=== PATIENT | female | born 1945 | race Caucasian/White ===

== ENCOUNTER → 2017-01-25 | Outpatient (CLI) | payer MEDICARE, OTHER ==
--- NOTE | 2017-01-25 12:55 | US ---
EXAMINATION TYPE: US thyroid st tissue head/neck DATE OF EXAM: 01/25/2017 11:00 AM COMPARISON: thyroid fna January 21, 2015. CLINICAL HISTORY: Thyroid Nodule E04.1. Prior FNA on left nodule GLAND SIZE: Right Lobe: 4.5 x 1.3 x 1.5 cm Overall Parenchyma: heterogenous Left Lobe: 4.8 x 2.3 x 1.5 cm Overall Parenchyma: heterogeneous Isthmus Thickness: 0.5 cm NODULES RIGHT: # of nodules measured on right: 2 of multiple 1. 1.2 X 1.0 x 0.9 cm isoechoic solid nodule at the mid pole with well-defined margins. This nodul e is wider than tall and shows minimal intranodular vascularity. Prior size: no prior 2. 0.7 X 0.8 x 0.6 cm hypoechoic mixed nodule at the lower pole with well-defined margins. This nod ule is wider than tall and shows intranodular vascularity. LEFT: # of nodules measured on left: 2 largest of multiple 1. 2.0 X 1.8 x 1.5 cm isoechoic solid nodule at the lower pole with well-defined margins. This nod ule is wider than tall and shows intranodular vascularity. Prior size: seen on Thyroid FNA 2. 1.1 X 1.2 x 0.8 cm hypoechoic solid nodule at the mid pole with well-defined margins. This nodule is wider than tall and shows no intranodular vascularity. ISTHMUS: # of nodules measured in the isthmus: 0 1 Bilateral neck scanned, no evidence of lymphadenopathy. Thyroid gland remains normal in size and heterogeneous in appearance. The dominant 1.2 cm solid nodul e right thyroid lobe is stable in size and appearance from prior. Dominant solid left thyroid nodule is perhaps slightly larger in size versus prior exam but has been aspirated in past. IMPRESSION: Thyroid gland is normal in size with scattered solid nodules redemonstrated, largest bilaterally have been sampled in 2014.
== END | disposition home or self-care (01) ==
LOC: RADUSWWP 10:36
PROVIDERS: ATTEND Surgery
DX: E04.2 Nontoxic multinodular goiter (principal)
CPT/HCPCS: 76536

== ENCOUNTER 2022-01-22 11:15 | Day surgery (SDC) | payer MEDICARE, OTHER ==
[2022-01-12 11:44] VITALS: BMI 30.1
[~2022-01-22 11:15] MED LIST: ACETAMINOPHEN TAB 500 MG TAB PO PRN; HEPARIN SODIUM,PORCINE/PF 5,000 UNIT/0.5 ML SYRINGE SQ PRN
[2022-01-22] MEDS ORDERED: LIDOCAINE 1% (10MG/ML) FOR IV START INTRADERMA PRN (11:32)
[2022-01-22] MEDS ORDERED: MIDAZOLAM 2 MG/2 ML VIAL IV PRN (11:32)
[2022-01-22] MEDS ORDERED: ONDANSETRON 4 MG/2 ML VIAL IVP ONE ×2 (11:32)
[2022-01-22] MEDS ORDERED: HYDROmorphone 0.5 MG/0.5 ML SYRINGE IVP PRN ×3 (11:32→13:55)
[2022-01-22] MEDS ORDERED: DEXAMETHASONE SOD PHOSPHATE 4 MG/ML 1 ML VIAL IV ONE ×2 (11:32)
[2022-01-22] MEDS: LACTATED RINGERS 1,000 ML IV SCH ×2 (12:03→17:17)
[2022-01-22] MEDS ORDERED: PROPOFOL 10 MG/ML 20 ML VIAL IV ONE (12:18)
[2022-01-22] MEDS ORDERED: MIDAZOLAM 2 MG/2 ML VIAL ONE (12:18)
[2022-01-22] MEDS ORDERED: ROCURONIUM 10 MG/ML (5 ML VIAL) IV ONE (12:18)
[2022-01-22] MEDS ORDERED: PHENYLEPHRINE-0.9% NACL SYG 1,000 MCG/10 ML SYRINGE ONE (12:18)
[2022-01-22] MEDS ORDERED: fentaNYL (PF) 50 MCG/ML 2 ML AMP ONE (12:18)
[2022-01-22] MEDS ORDERED: LIDOCAINE 2% INJ 20 MG/ML (2 ML VIAL) ONE (12:18)
[2022-01-22] MEDS ORDERED: BUPIVACAIN-EPI 0.25%-1:200,000 30 ML VIAL SQ ONE (12:23)
[2022-01-22] MEDS ORDERED: LACTATED RINGERS 1,000 ML IV ONE (13:41)
[2022-01-22] MEDS ORDERED: traMADol 50 MG TAB PO PRN (13:55)
[2022-01-22] MEDS ORDERED: NALOXONE 0.4 MG/ML 1 ML VIAL IV PRN (13:55)
[2022-01-22] MEDS ORDERED: ONDANSETRON 4 MG/2 ML VIAL IVP PRN (13:55)
[2022-01-22] MEDS ORDERED: HYDROcodone/APAP 5-325MG 1 EACH TAB PO PRN (13:55)
--- NOTE | 2022-01-22 14:00 | P.OP ---
Date of Procedure: 01/22/22 Procedure(s) Performed: PREOPERATIVE DIAGNOSIS: Chronic cholecystitis POSTOPERATIVE DIAGNOSIS: Same PROCEDURE: Laparoscopic cholecystectomy SURGEON: Sofia EBL: Minimal see anesthesia record ANESTHESIA: Gen. COMPLICATIONS: None OPERATIVE PROCEDURE: The patient was brought and placed on the operating room table in the supine position. The patient was placed under general anesthesia at that time. The abdomen was prepped and draped in the usual sterile fashion. A small vertical infraumbilical incision was made. The fascia was grasped with the Castillo forceps. The fascia was retracted anteriorly. The Veress needle was advanced into the peritoneal cavity. The saline drop test was normal. Insufflation took place up to 15 mmHg. A 5 mm optical trocar was advanced and the peritoneal cavity. 2 additional 5 mm trochars were placed in the right upper quadrant under direct visualization. A 12 mm trocar was advanced into the epigastric incision site. the patient had adhesions between the omentum and the liver in the anterior abdominal wall above the liver margin. These were lysed using electrocautery. The patient's gallbladder was densely adherent to the surrounding pericolonic fat. Careful blunt dissection for the most part is utilized to mobilize the gallbladder further. Once we had the gallbladder fully visualized and we were grasping the gallbladder we noted that there was a large amount of purulent fluid that evacuated from where we grasped the gallbladder. Cultures were taken. Careful dissection at the infundibulum revealed the cystic duct. It was somewhat prominent in diameter. A 2-0 Ethibond stitch was used to ligate on the patient's side of the cystic duct with an additional2 clips on the patient's side as well. The adjacent cystic artery was identified and clipped as well. A small vessel was seen along the gallbladder fossa and clipped as well. The gallbladder was then removed from the liver bed using electrocautery. The gallbladder was then removed from the epigastric trocar site with an Endo Catch bag. The gallbladder fossa was irrigated with saline. There was no evidence of any bleeding or biliary drainage seen. I did place a drain in the gallbladder fossa exiting from the most lateral right upper quadrant 5 mm trocar site. This is sutured in place using a 3-0 silk stitch.The fascia at the 12 millimeter site was closed using a CeliaDick 0 Vicryl stitch. The trochars were then removed. The skin at all 3 sites was closed using a 4-0 Monocryl stitch. Skin glue was utilized on the incision sites. At the end of this procedure the sponge and needle counts were correct. DISPOSITION: Stable to the recovery room
--- NOTE | 2022-01-22 17:09 | P.CONS ---
History of Present Illness - Reason for Consult Consult date: 01/22/22 - Chief Complaint Medical management - History of Present Illness 76-year-old woman with a history of chronic cholecystitis, hyperlipidemia which is diet controlled presented for elective cholecystectomy. Surgery consulted medicine for medical management. Patient does not take any medications at home and has no complaints at this time other than a slight amount of pain and nausea. Her operation went well and the gallbladder was removed laparoscopically with the SHBEA drain remaining in place. The site of the gallbladder did have some. Fluid, which was sent for culture and pending. Patient is currently on tramadol when necessary for pain, Zofran when necessary for nausea, Zosyn for presumed infection. She currently denies fevers, chills, vomiting, chest pain, palpitations, cough, dyspnea, constipation, diarrhea, numbness/weakness of extremities. She is afebrile, 112/71, heart rate 77, 96% on room air. No labs or imaging are available for me to review during this admission. All Systems reviewed and pertinent positives and negatives noted in HPI, all other symptoms are negative Gen: awake, alert HEENT: normocephalic, atraumatic, good hearing acuity, moist mucous membranes Resp: good air exchange, breathing comfortably with no accessory muscle use CVS: good distal perfusion x 4, GI: soft, NTTP, ND : no SPT, no CVAT, donnelly catheter not present MSK: no pitting edema, no clubbing Neuro: non-focal, moving all extremities Psych: cooperative, euthymic mood Labs and imaging as above Assessment/plan: Chronic cholecystitis Hyperlipidemia -Continue current management per surgical team -Agree with Zosyn -Follow up cultures -CBC, BMP, magnesium in the morning -Will not repeat lipid panel at this time, continue outpatient follow-up Thank you for this consult. A member of our team is available 22/04, should any issues or concerns arise, please reach out via perfect serve Past Medical History Past Medical History: Hyperlipidemia, Thyroid Disorder Additional Past Medical History / Comment(s): Thyroid Nodules. 2009 - small nodule on lung identified, follow up found it to be same size and stable, no pr oblems since. History of Any Multi-Drug Resistant Organisms: None Reported Past Surgical History: Orthopedic Surgery, Tubal Ligation Additional Past Surgical History / Comment(s): Right shoulder surgery. Thyroid biopsy. Past Anesthesia/Blood Transfusion Reactions: Motion Sickness, Postoperative Naus ea & Vomiting (PONV) Additional Past Anesthesia/Blood Transfusion Reaction / Comm: "Takes awhile for my body to get rid of it". Past Psychological History: No Psychological Hx Reported Smoking Status: Never smoker Past Alcohol Use History: Rare Past Drug Use History: None Reported - Past Family History Father Family Medical History: Cancer Mother Family Medical History: Fibromyalgia, Thyroid Disorder Additional Family Medical History / Comment(s): Bj Silva, Chronic fatigue, Thyroid issues. Sister(s) Family Medical History: Fibromyalgia, Thyroid Disorder Medications and Allergies Home Medications Medication Instructions Recorded Confirmed Type No Known Home Medications 01/07/15 01/22/22 History Allergies Allergy/AdvReac Type Severity Reaction Status Date / Time No Known Allergies Allergy Verified 01/22/22 11:35 Physical Exam Osteopathic Statement: *. No significant issues noted on an osteopathic structural exam other than those noted in the History and Physical/Consult. Vitals: Vital Signs Temp Pulse Resp BP Pulse Ox 01/22/22 16:50 97.8 F 77 18 112/71 96 01/22/22 16:00 66 18 110/60 100 01/22/22 15:45 68 18 113/61 100 01/22/22 15:30 67 18 115/68 100 01/22/22 15:15 72 16 118/63 100 01/22/22 15:00 74 16 130/60 100 01/22/22 14:45 68 16 140/67 100 01/22/22 14:30 71 16 146/77 100 01/22/22 14:15 74 16 152/75 100 01/22/22 14:00 71 16 151/71 100 01/22/22 13:45 70 16 153/75 100 01/22/22 13:41 97 F L 80 16 119/64 100 01/22/22 11:45 98.8 F 76 16 154/78 99 Intake and Output 01/22/22 01/22/22 01/22/22 06:59 14:59 22:59 Intake Total 1150 Output Total 20 Balance 1130 Intake: IV 1150 Output: Estimated Blood Loss 20 Other: Weight 75.1 kg
[2022-01-22] MEDS: PIPERACILLIN-TAZOBACTAM 3.375 GM in SODIUM CHLORIDE 0.9% 100 ML IVPB SCH (18:23)
[2022-01-22] MEDS: D5-0.45% NACL WITH KCL 20MEQ/L 1,000 ML IV SCH (19:46)
[2022-01-22] MEDS: HEPARIN SODIUM,PORCINE/PF 5,000 UNIT/0.5 ML SYRINGE SQ SCH (20:22)
[2022-01-22] MEDS: FAMOTIDINE 20 MG TAB PO SCH (20:22)
[2022-01-22] MEDS: DOCUSATE 100 MG CAP PO SCH (20:22)
[2022-01-23] MEDS: PIPERACILLIN-TAZOBACTAM 3.375 GM in SODIUM CHLORIDE 0.9% 100 ML IVPB SCH ×3 (00:04→16:27)
[2022-01-23] MEDS: HEPARIN SODIUM,PORCINE/PF 5,000 UNIT/0.5 ML SYRINGE SQ SCH ×2 (05:17→13:03)
[2022-01-23 06:21] VITALS: RESP 18
[2022-01-23] MEDS: FAMOTIDINE 20 MG TAB PO SCH (07:46)
[2022-01-23] MEDS: DOCUSATE 100 MG CAP PO SCH (07:46)
[2022-01-23] MEDS: D5-0.45% NACL WITH KCL 20MEQ/L 1,000 ML IV SCH (09:00)
[2022-01-23 09:16] LABS: Basophils # (A) 0.01 X 10*3/uL (0.00-0.10); Basophils % (A) 0.1 %; Eosinophils # (A) 0 X 10*3/uL (0.04-0.35); Eosinophils % (A) 0 %; HCT 38.6 % (37.2-46.3); HGB 12.4 g/dL (12.0-15.0); Immature Grans, Automated 0.5 %; Lymphocytes # (A) 1.16 X 10*3/uL (0.90-5.00); Lymphocytes % (A) 11.2 %; MCHC 32.1 g/dL (32.0-37.0); MCV 90.4 fL (80.0-97.0); Mean Platelet Volume 12.3 fL (9.5-12.2); Monocytes # (A) 1.01 X 10*3/uL (0.20-1.00); Monocytes % (A) 9.7 %; NRBC Per 100 WBC 0 /100 WBCS (0.0-0.0); Neutrophils # (A) 8.17 X 10*3/uL (1.80-7.70); Neutrophils % (A) 78.5 %; Platelet Count 224 X 10*3/uL (140-440); RBC 4.27 X 10*6/uL (4.10-5.20); RDW 12.2 % (11.5-14.5)
[2022-01-23 09:23] LABS: African American GFR (CKD) 84.2 (60.0-200.0); Albumin 3.6 g/dL (3.8-4.9); Albumin/Globulin Ratio 1.71 (1.60-3.17); Anion Gap 10.8 mmol/L (10.00-18.00); Blood Urea Nitrogen 9.6 mg/dL (9.0-27.0); Calcium 8.8 mg/dL (8.7-10.3); Carbon Dioxide 23.2 mmol/L (20.0-27.5); Globulin 2.1 g/dL (1.6-3.3); Non-African American GFR(CKD) 72.6 (60.0-200.0); Potassium 4.3 mmol/L (3.5-5.5); Total Bilirubin 0.6 mg/dL (0.30-1.20); Total Protein 5.7 g/dL (6.2-8.2)
[2022-01-23] MEDS: LACTATED RINGERS 1,000 ML IV SCH ×2 (12:55)
--- NOTE | 2022-01-23 13:20 | P.PN ---
Subjective Progress Note Date: 01/23/22 No new complaints today. Pain and nausea have resolved. Gen: awake, alert HEENT: normocephalic, atraumatic, good hearing acuity, moist mucous membranes Resp: good air exchange, breathing comfortably with no accessory muscle use CVS: good distal perfusion x 4, GI: soft, NTTP, ND : no SPT, no CVAT, donnelly catheter not present MSK: no pitting edema, no clubbing Neuro: non-focal, moving all extremities Psych: cooperative, euthymic mood Assessment/plan: Chronic cholecystitis Hyperlipidemia -Continue current management per surgical team -Agree with Zosyn -Follow up cultures -CBC, BMP, magnesium in the morning -Will not repeat lipid panel at this time, continue outpatient follow-up Thank you for this consult. A member of our team is available 22/04, should any issues or concerns arise, please reach out via perfect serve Objective - Vital Signs Vital signs: Vital Signs Temp 98.2 F 01/23/22 06:20 Pulse 91 01/23/22 06:20 Resp 18 01/23/22 06:20 BP 113/66 01/23/22 06:20 Pulse Ox 94 L 01/23/22 06:20 Intake & Output 01/22/22 01/23/22 01/23/22 18:59 06:59 18:59 Intake Total 1390 480 Output Total 50 7 Balance 1340 473 Weight 75.1 kg Intake: IV 1150 Oral 240 480 Output: Drainage 30 7 Right Abdomen 30 7 Estimated Blood Loss 20 Other: Voiding Method Toilet # Voids 3 - Labs CBC & Chem 7: 01/23/22 06:12 01/23/22 06:12 Labs: Abnormal Lab Results - Last 24 Hours (Table) 01/23/22 01/23/22 Range/Units 06:12 06:12 WBC 10.40 H (4.50-10.00) X 10*3/uL MPV 12.3 H (9.5-12.2) fL Immature Gran # 0.05 H (0.00-0.04) X 10*3/uL Neutrophils # 8.17 H (1.80-7.70) X 10*3/uL Monocytes # 1.01 H (0.20-1.00) X 10*3/uL Eosinophils # 0 L (0.04-0.35) X 10*3/uL Glucose 116 H (70-110) mg/dL AST 66 H (13-35) U/L ALT 69 H (8-44) U/L Total Protein 5.7 L (6.2-8.2) g/dL Albumin 3.6 L (3.8-4.9) g/dL
--- NOTE | 2022-01-23 14:10 | P.DS ---
Providers Expected date of discharge: 01/23/22 Attending physician: Sg Esparza Consults: 01/22/22 13:55 Consult Physician Routine Consulting Provider: Radha Weiss Consult Reason/Comments: medical management Do you want consulting provider notified?: Yes Primary care physician: Stated None Hospital Course: Discharge diagnosis 1. Chronic cholecystitis status post laparoscopic cholecystectomy Hospital course This is a 76-year-old female who has been having right upper quadrant abdominal pain since the beginning of November. Patient report the pain felt like indigestion and had radiated to her mid back. Symptoms had resolved and then a few weeks later she again had severe pain right upper quadrant and epigastric area. Patient is status post laparoscopic cholecystectomy. She tolerated pro cedure well. Her pain is controlled. She is tolerating diet. She is up and ambulating. She is afebrile. Her incision sites clean dry and intact. SHEBA drain serosanguineous 37 mL output. Patient is stable for discharge. Please refer to chart for any further details. Physician Displayer note has been reviewed by physician. Signing provider agrees with the documented findings, assessment, and plan of care. I have personally seen and examined the patient, reviewed the DYNAMOMETER TUNER /PAs history, exam and MDM and agree with the assessment and plan as written. Based on total visit time, I have performed more than 50% of the visit. As above: Patient doing well today. Pain is controlled. She would like to go home. January discharge. Follow-up on for drain removal. Patient Condition at Discharge: Stable Plan - Discharge Summary Discharge Rx Participant: Yes New Discharge Prescriptions: New traMADol HCL [Ultram] 50 mg PO Q6HR PRN 3 Days #12 tab PRN Reason: Pain Amoxicillin/Potassium Clav [Augmentin 875-125 Tablet] 1 tab PO Q12HR 7 Days #14 tab Discharge Medication List Amoxicillin/Potassium Clav [Augmentin 875-125 Tablet] 1 tab PO Q12HR 7 Days #14 tab 01/23/22 [Rx] traMADol HCL [Ultram] 50 mg PO Q6HR PRN 3 Days #12 tab 01/23/22 [Rx] Follow up Appointment(s)/Referral(s): Sg Esparza MD [Medical Doctor] - 01/25/22 (dr esparza will removed SHEBA drain at appointment ) Patient Instructions/Handouts: *Surgery [facility] - Laparoscopic Cholecystectomy Discharge Instructions Activity/Diet/Wound Care/Special Instructions: No lifting over 10 pounds You may shower. No soaking or tub baths for 2 weeks Very light activity until you are reevaluated at your follow up appointment with your surgeon Keep a log of SHEBA drain output and bring with you to your follow-up appointment Milk/strip drains 2-3 times a day Discharge Disposition: HOME SELF-CARE
[2022-01-23 14:31] VITALS: BP 118/67; PULSE 84; TEMP 99.1
== END 2022-01-23 17:53 | disposition home or self-care (01) ==
LOC: OR 11:15 → 6NMEDSUR 13:41 → OR 01-23 17:53
PROVIDERS: ATTEND Surgery
DX: K80.10 Calculus of gallbladder with chronic cholecystitis without obstruction (principal); E78.5 Hyperlipidemia, unspecified; E04.1 Nontoxic single thyroid nodule; H26.9 Unspecified cataract; R91.8 Other nonspecific abnormal finding of lung field; Z98.890 Other specified postprocedural states; Z90.89 Acquired absence of other organs; Z98.51 Tubal ligation status; Z83.3 Family history of diabetes mellitus; Z82.69 Family history of other diseases of the musculoskeletal system and connective tissue; Z83.79 Family history of other diseases of the digestive system; Z83.49 Family history of other endocrine, nutritional and metabolic diseases
CPT/HCPCS: 88108; 88304; 88305; 80053; 85025; 47562; J2543 ×2; J1100; J0690; J2405; J1170; J1644 ×2